=== PATIENT | female | born 1995 | race Caucasian/White ===

== ENCOUNTER 2016-12-17 15:24 | Emergency (ER) | payer BC ==
[~2016-12-17] VITALS: Ht 170.2 cm; Wt 70.6 kg
[2016-12-17 15:28] VITALS: BP 100/67
== END 2016-12-17 16:34 ==
LOC: ED 16:20
DX: F10.220 Alcohol dependence with intoxication, uncomplicated (principal); F17.200 Nicotine dependence, unspecified, uncomplicated; F14.90 Cocaine use, unspecified, uncomplicated
CPT/HCPCS: 99281; 99285